=== PATIENT | female | born 1955 | race Hispanic/Latino ===

== ENCOUNTER 2018-02-03 09:17 | Emergency (ER) | payer MEDICARE ==
[2018-02-03 09:34] VITALS: BMI 32.2
[2018-02-03 09:40] VITALS: TEMP 97.9
--- NOTE | 2018-02-03 09:47 | ED PDOC ---
Arrival/HPI - General Historian: Patient - History of Present Illness Time/Duration: Other (see hpi) Context: Pedestrian - General Chief Complaint: Trauma Time Seen by Provider: 02/03/18 09:46 - History of Present Illness Narrative History of Present Illness (Text): 02/03/18 09:47 This 62 yo female presents to this emergency department complaining of b/l hands, and b/l knees pain since last night. Patient stated she tripped on uneven side walk. She stated she fell on her knees and she put her hands down to break the fall. Denies LOC, syncope, dizziness, weakness, parestehsias, or abnormal gait. (Saul Cote) Past Medical History - Provider Review Nursing Documentation Reviewed: Yes - Infectious Disease Hx of Infectious Diseases: None - Tetanus Immunization Tetanus Immunization: Unknown - Cardiac Hx Hypertension: Yes Hx Pacemaker: No - Neurological Hx Paralysis: No - HEENT Hx Macular Degeneration: Yes Other/Comment: chronic sinusitis - Endocrine/Metabolic Hx Diabetes Mellitus Type 2: Yes - Hematological/Oncological Hx Blood Transfusions: No Hx Blood Transfusion Reaction: No - Musculoskeletal/Rheumatological Hx Musculoskeletal Disorders: Yes Hx Arthritis: Yes Other/Comment: Sciatica - Psychiatric Hx Emotional Abuse: No Hx Physical Abuse: No Hx Substance Use: No - Surgical History Hx Section: Yes (x2) - Anesthesia Hx Anesthesia: Yes Hx Anesthesia Reactions: No Hx Malignant Hyperthermia: No - Suicidal Assessment Feels Threatened In Home Enviroment: No Family/Social History - Physician Review Nursing Documentation Reviewed: Yes Family/Social History: Other (noncontributory) Smoking Status: Never Smoked Hx Alcohol Use: No Hx Substance Use: No Hx Substance Use Treatment: No Allergies/Home Meds Allergies/Adverse Reactions: Allergies MARIJUANA SMOKE Allergy (Intermediate, Uncoded 06/17/15 14:51) RASH Home Medications: Home Meds Medication Instructions Recorded Confirmed Amlodipine Besylate 5 mg PO QPM 02/08/13 06/19/15 Aspirin [Ecotrin] 81 mg PO BID 02/08/13 06/19/15 Advanced Insulin Support And 1 tab PO BID 06/17/15 06/19/15 Carbohydrate Atorvastatin [Lipitor] 10 mg PO DIN 06/17/15 06/19/15 Cholecalciferol [Vitamin D] 1,000 iu PO DAILY 06/17/15 06/19/15 Coenzyme Q10 [Co Q-10] 100 mg PO QPM 06/17/15 06/19/15 Cranberry 400 mg PO DAILY 06/17/15 06/19/15 Fexofenadine Hydrochloride 60 mg PO QPM 06/17/15 06/19/15 [[place]] Fish Oil [[place]-3] 1,200 mg PO BID 06/17/15 06/19/15 Garlic [Garlic Oil] 0 mg PO QPM 06/17/15 06/19/15 Gemfibrozil [Lopid] 600 mg PO BID 06/17/15 06/19/15 Losartan/Hydrochlorothiazide 1 tab PO QPM 06/17/15 06/19/15 [Losartan Potassium-Hydrochlorothiazide 12.5 M] [place] Women's 50+ Vitamin 1 tab PO DAILY 06/17/15 06/19/15 Review of Systems - Review of Systems Constitutional: Normal. absent: Fatigue, Weight Change, Fevers, Night Sweats Eyes: Normal ENT: Normal Respiratory: Normal. absent: SOB, Cough Cardiovascular: Normal. absent: Chest Pain, Palpitations Gastrointestinal: Normal. absent: Abdominal Pain, Nausea, Vomiting Genitourinary Female: Normal Musculoskeletal: Other (b/l knees , and b/l hands pain) Skin: Normal Neurological: Normal Endocrine: Normal Hemo/Lymphatic: Normal Psychiatric: Normal Physical Exam Temperature: Afebrile Blood Pressure: Normal Pulse: Regular Respiratory Rate: Normal Appearance: Positive for: Well-Appearing, Non-Toxic, Comfortable Pain Distress: None Mental Status: Positive for: Alert and Oriented X 3 - Systems Exam Head: Present: Atraumatic, Normocephalic, Other (no raccoon sign. no granados sign) Pupils: Present: PERRL Extroacular Muscles: Present: EOMI. No: Entrapment Conjunctiva: Present: Normal Ears: Present: Normal, Other (no hemotympanum) Mouth: Present: Moist Mucous Membranes Neck: Present: Normal Range of Motion. No: Meningeal Signs, Paraspinal Tenderness Respiratory/Chest: Present: Clear to Auscultation, Good Air Exchange. No: Respiratory Distress, Accessory Muscle Use Cardiovascular: Present: Regular Rate and Rhythm, Normal S1, S2. No: Murmurs Abdomen: No: Tenderness, Distention, Peritoneal Signs Back: Present: Normal Inspection. No: CVA Tenderness Upper Extremity: Present: Normal Inspection. No: Cyanosis, Edema Lower Extremity: Present: Normal Inspection. No: Edema Neurological: Present: GCS=15, CN II-XII Intact, Speech Normal, Motor Func Grossly Intact, Normal Sensory Function, Normal Cerebellar Funct, Gait Normal, Memory Normal Skin: Present: Warm, Dry, Normal Color, Other ((+) b/l anterior knee superficial abrasion ). No: Rashes Psychiatric: Present: Alert, Oriented x 3, Normal Insight, Normal Concentration Vital Signs Temp Pulse Resp BP Pulse Ox 02/03/18 12:30 80 17 165/82 H 98 02/03/18 11:37 78 17 169/87 H 98 02/03/18 09:40 97.9 F 80 18 181/90 H 97 Medical Decision Making Re-evaluation Time: 11:29 Reassessment Condition: Re-examined, Improved ED Course and Treatment: 02/03/18 11:28 Re-evaluation. Patient feels better. Discussed results and plan with patient who expresses understanding. All questions answered and there is agreement with the plan to discharge home with instructions. Patient stable for discharge. Return if symptoms persist or worsen Patient came with mechanical fall complaining of hand and knees pain. Denies dizziness, or syncope. X-rays were negative for Fx. Patient requested a cane. Patient feels well and she wishes to be discharge home. (Saul Cote) - RAD Interpretation Narrative RAD Interpretations (Text): 02/03/18 11:31 Hand x-rays: no Fracture Knee x-rays: no fx (Saul Cote) Radiology Orders: 02/03/18 10:14 KNEES BILATERAL [RAD] Stat 02/03/18 10:15 HAND 3 VIEWS BI [RAD] Stat - Medication Orders Current Medication Orders: Discontinued Medications Acetaminophen (Tylenol 325mg Tab) 650 mg PO STAT STA Stop: 02/03/18 10:18 Last Admin: 02/03/18 10:27 Dose: 650 mg Tetanus/Reduced Diphtheria/Acell Pertussis (Boostrix Vaccine Inj) 0.5 ml IM .ONCE ONE Stop: 02/03/18 11:29 Last Admin: 02/03/18 11:53 Dose: 0.5 ml Immunization Registry Document 02/03/18 11:53 SF (Rec: 02/03/18 11:53 SF [facility] [id number] Immunization Registry Consent Date 02/03/18 Disposition/Present on Arrival - Present on Arrival Any Indicators Present on Arrival: No History of DVT/PE: No History of Uncontrolled Diabetes: Yes Urinary Catheter: No History of Decub. Ulcer: No History Surgical Site Infection Following: None - Disposition Have Diagnosis and Disposition been Completed?: Yes Disposition Time: 11:32 Patient Plan: Discharge - Disposition Diagnosis: Knee pain, Hand pain Disposition: HOME/ ROUTINE Condition: GOOD Discharge Instructions (ExitCare): Hand Pain (DC), Knee Pain (DC) Additional Instructions: Call Dr. Calle office for follow up visit in 1-2 days. Take medication as instructed. Return to emergency if pain worsen. Prescriptions: Ibuprofen [Motrin] 400 mg PO Q8H PRN #20 tab PRN Reason: Pain, Severe (8-10) Referrals: Chucky Calle DO [Primary Care Provider] - Follow up with primary Forms: [employer] ([place])
--- NOTE | 2018-02-03 11:21 | RAD ---
PROCEDURE: Right Hand Radiographs. HISTORY: pain s/p fall COMPARISON: None. FINDINGS: BONES: Normal. No fracture. JOINTS: Degenerative changes are seen in the 3rd MCP joint. SOFT TISSUES: Normal. OTHER FINDINGS: None. IMPRESSION: No acute findings
--- NOTE | 2018-02-03 11:23 | RAD ---
Date of service: 02/03/2018 PROCEDURE: Bilateral Knee Radiographs. HISTORY: pain s/p fall COMPARISON: None. FINDINGS: BONES: Right Knee: Normal. No fracture. Left Knee: Normal. No fracture. JOINTS: Right Knee: Normal. No osteoarthritis. Left knee: Normal. No osteoarthritis. SOFT TISSUES: Right Knee: Normal. Left Knee: Normal. JOINT EFFUSION: Right Knee: None. Left Knee: None. OTHER FINDINGS: Mild degenerative changes in the patellofemoral joints. IMPRESSION: No acute findings.
[2018-02-03] MEDS ORDERED: TDAP Vaccine 0.5 mL Syr IM ONE (11:28)
[2018-02-03 11:38] VITALS: RESP 17; O2SAT 98
[2018-02-03 12:35] VITALS: BP 165/82; PULSE 80
== END 2018-02-03 12:30 | disposition home or self-care (01) ==
LOC: ED 09:17
DX: M79.642 Pain in left hand (principal); M79.641 Pain in right hand; M25.562 Pain in left knee; M25.561 Pain in right knee; Z23 Encounter for immunization